=== PATIENT | female | born 1980 | race African-American/Black ===

== ENCOUNTER 2021-10-19 09:34 | Emergency (ER) | payer BC ==
[~2021-10-19] VITALS: Ht 172.7 cm; Wt 75.0 kg
[2021-10-19] MEDS ORDERED: ONDANSETRON 4MG ODT PO ONE ×2 (10:00→12:30)
[2021-10-19] MEDS ORDERED: IBUPROFEN 400MG TABLET PO ONE (10:00)
[2021-10-19] MEDS ORDERED: ACETAMINOPHEN 325MG TABLET PO ONE (10:00)
[2021-10-19] MEDS ORDERED: IBUP-2028 MT (13:08)
[2021-10-19] MEDS ORDERED: TOPUD PO (13:08)
[2021-10-19 13:29] VITALS: BP 114/68
[2021-10-19 15:28] LABS: UCG SCREEN NEGATIVE
== END 2021-10-19 13:33 | disposition home or self-care (01) ==
LOC: ER 10:05
DX: R53.81 Other malaise (principal); R53.83 Other fatigue; Z20.822 Contact with and (suspected) exposure to COVID-19
CPT/HCPCS: 81025; 87426; 87804; 93005; 99284; Q0162